=== PATIENT | female | born 1990 | race Hispanic/Latino ===

== ENCOUNTER 2019-08-14 00:27 | Emergency (ER) | payer SELFPAY | END 2019-08-14 00:43 | disposition home or self-care (01) | LOC: ERS 00:27 | DX: R05 Cough (principal); J45.909 Unspecified asthma, uncomplicated | CPT/HCPCS: 99281 ==

== ENCOUNTER 2019-11-11 13:51 | Emergency (ER) | payer OTHER, SELFPAY | END 2019-11-11 14:30 | disposition home or self-care (01) | LOC: ERS 13:51 | DX: U07.1 COVID-19 (principal); J45.909 Unspecified asthma, uncomplicated | CPT/HCPCS: 87635; 99283; U0003 ==

== ENCOUNTER 2020-04-13 08:01 | Emergency (ER) | payer SELFPAY | END 2020-04-13 08:50 | disposition home or self-care (01) | LOC: ERS 08:01 | DX: B30.9 Viral conjunctivitis, unspecified (principal); J45.909 Unspecified asthma, uncomplicated | CPT/HCPCS: 99282 ==

== ENCOUNTER 2023-01-04 16:26 | Emergency (ER) | payer BC, SELFPAY | END 2023-01-04 18:37 | disposition home or self-care (01) | LOC: ERS 16:26 | DX: L03.311 Cellulitis of abdominal wall (principal); L98.9 Disorder of the skin and subcutaneous tissue, unspecified | CPT/HCPCS: 99283 ==